=== PATIENT | female | born 1965 | race Caucasian/White ===

== ENCOUNTER 2018-12-14 10:32 | Emergency (ER) | payer MEDICARE, OTHER ==
[~2018-12-14] VITALS: Ht 162.6 cm; Wt 68.0 kg
[~2018-12-14 10:32] MED LIST: ACYCLOVIR 400400 MG PO; CELLCEPT 250 M250 MG; CIPRO500 MG PO; COUMADIN 1MG TAB1 M1 PO; DIFLUCAN200 MG PO; GAMMAGARD S-D 55 GM IV; PROTONIX40 M1 PO; TACROLIMUS0.5 MG PO
[2018-12-14 10:42] VITALS: BP 139/83
[2018-12-14] MEDS ORDERED: BACTRIM DS TAB1 EACH PO (10:52)
[2018-12-14] MEDS ORDERED: ELIQUIS5 MG PO (10:52)
[2018-12-14] MEDS ORDERED: EVOXAC30 MG PO (10:53)
[2018-12-14] MEDS ORDERED: PREDNISONE 10 M10 M1 PO (10:53)
[2018-12-14] MEDS ORDERED: ZPAK PO (10:53)
[2018-12-14] MEDS ORDERED: LIPITOR 20 MG T20 M1 PO (10:54)
== END 2018-12-14 11:25 | disposition home or self-care (01) ==
LOC: M.ERS 10:32
DX: S81.012D Laceration without foreign body, left knee, subsequent encounter (principal); Z88.8 Allergy status to other drugs, medicaments and biological substances; X58.XXXD Exposure to other specified factors, subsequent encounter